=== PATIENT | male | born 2000 | race Caucasian/White ===

== ENCOUNTER 2019-07-22 13:05 | Emergency (ER) | payer OTHER ==
[~2019-07-22] VITALS: Ht 190.5 cm; Wt 90.9 kg
[2019-07-22 13:12] VITALS: BP 157/98; TEMP 98
[2019-07-22] MEDS ORDERED: MOTRIN 600600 MG/TAB PO (13:54)
[2019-07-22] MEDS ORDERED: TYLENOL 500MG500 MG PO (13:54)
[2019-07-22] MEDS ORDERED: BENADRYL25 M2 PO (13:55)
[2019-07-22] MEDS ORDERED: NEURONTIN300 MG/CAP PO (14:23)
[2019-07-22 14:43] VITALS: PULSE 57
== END 2019-07-22 14:45 | disposition home or self-care (01) ==
LOC: COL.ER 13:05
DX: G50.0 Trigeminal neuralgia (principal)